=== PATIENT | female | born 1975 | race Caucasian/White ===

== ENCOUNTER 2017-01-05 19:34 | Inpatient (IN) | payer MEDICARE ==
[~2017-01-05] VITALS: Ht 170.2 cm; Wt 87.6 kg
[~2017-01-05 19:34] MED LIST: ACYC-114 PO; ALPR2TAB5 PO; AMOX500T PO; ARIP5TAB13 PO; BUSP10TA; D-ME118S2 PO; DEXL60CA2 PO; DICY20TA3 PO; ESCI20TA10 PO; HYDR25TA6 PO; HYDR50CA PO; OMEP-110 PO; OSEL75CA; PHEN37.53 PO; SUCR1TAB PO; SUMA100T3 PO; TOPI25TA32 PO; ZOLP10TA5 PO
[2017-01-05] MEDS ORDERED: SODIUM CHLORIDE FLUSH 10ML SYR IVF ONE ×2 (20:00→20:30)
[2017-01-05] MEDS ORDERED: SODIUM CHLORIDE 0.9% 1,000ML IVBOLUS ONE ×2 (20:00→20:30)
[2017-01-05 20:05] LABS: HEMATOCRIT 46.1 % (34.6-47.8); HEMOGLOBIN 14.6 g/dL (11.7-16.4); WHITE BLOOD COUNT 10.2 x10^3/uL (3.4-10)
[2017-01-05 20:15] LABS: ASPARTATE AMINO TRANSFERASE 19 U/L (15-37); BLOOD UREA NITROGEN 5 mg/dL (7-18)
[2017-01-05] MEDS ORDERED: ONDANSETRON 2MG/ML, 2ML ONE (20:23)
[2017-01-05] MEDS ORDERED: FAMOTIDINE 20 MG/2 ML ONE (20:23)
[2017-01-05] MEDS ORDERED: MAALOX/HYOSCYAMINE/LIDOCAINE 45 ML BTL ONE (20:23)
[2017-01-05] MEDS ORDERED: LORazepam 2 MG/ML, 1ML ONE (20:23)
[2017-01-05] MEDS ORDERED: ONDANSETRON 2MG/ML, 2ML IVPush ONE (20:30)
[2017-01-05] MEDS ORDERED: FAMOTIDINE 20 MG/2 ML IVP ONE (20:30)
[2017-01-05] MEDS ORDERED: LORazepam 2 MG/ML, 1ML IVPush ONE (20:30)
[2017-01-05] MEDS ORDERED: MAALOX/HYOSCYAMINE/LIDOCAINE 45 ML BTL PO ONE (20:30)
[2017-01-05 20:39] LABS: IS PT STATUS REG ER OR PRE ER? YES
[2017-01-05 21:55] LABS: DAU SCREEN DISCLAIMER
[2017-01-05] MEDS ORDERED: BISACODYL 10 MG SUPP PR PRN (22:30)
[2017-01-05] MEDS ORDERED: ACYCLOVIR 400 MG TABLET PO PRN (22:30)
[2017-01-05] MEDS ORDERED: PROMETHAZINE 25 MG/ML, 1ML IM PRN (22:30)
[2017-01-05] MEDS ORDERED: ACETAMINOPHEN 325 MG TABLET PO PRN (22:30)
[2017-01-05] MEDS: HYDROXYZINE PAMOATE HOMEMEDPO SCH (22:30)
[2017-01-05 23:00] VITALS: BP 136/91
[2017-01-05 23:00] LABS: FERRITIN 47.5 ng/mL (8-252)
[2017-01-05] MEDS: morphine SULFATE 10 MG/ML, 1ML IVPush PRN ×2 (23:09→23:39)
[2017-01-05] MEDS: SODIUM CHLORIDE 0.9% 1,000 ML IV SCH (23:10)
[2017-01-05] MEDS: ZOLPIDEM 10MG TABLET PO SCH (23:40)
[2017-01-05] MEDS: FAMOTIDINE 20 MG/2 ML IVPush SCH (23:40)
[2017-01-05] MEDS: DICYCLOMINE 20 MG TABLET PO SCH (23:40)
[2017-01-05] MEDS: HEPARIN 5,000 UNITS/ML, 1ML SQ SCH (23:41)
[2017-01-05] MEDS: TOPIRAMATE 25 MG TABLET PO SCH (23:41)
[2017-01-06] MEDS: morphine SULFATE 10 MG/ML, 1ML IVPush PRN ×5 (00:32→12:25)
[2017-01-06] MEDS: ALPRazolam 1MG TABLET PO PRN ×2 (00:33→06:29)
[2017-01-06] MEDS ORDERED: DIPHENHYDRAMINE 25 MG CAPSULE PO ONE (02:30)
[2017-01-06] MEDS: ONDANSETRON 2MG/ML, 2ML IVPush PRN ×2 (02:35→09:02)
[2017-01-06] MEDS: CALCIUM CARBONATE 500 MG TAB.CHEW PO PRN ×2 (02:36→14:36)
[2017-01-06 03:18] VITALS: BP 125/76
[2017-01-06 05:09] LABS: HEMATOCRIT 41.8 % (34.6-47.8); HEMOGLOBIN 13.5 g/dL (11.7-16.4)
[2017-01-06 05:15] LABS: BLOOD UREA NITROGEN 4 mg/dL (7-18)
[2017-01-06 05:18] LABS: ASPARTATE AMINO TRANSFERASE 15 U/L (15-37)
[2017-01-06] MEDS: DICYCLOMINE 20 MG TABLET PO SCH ×4 (06:28→20:08)
[2017-01-06 06:42] VITALS: BP 111/69
[2017-01-06 06:47] VITALS: BP 103/54
[2017-01-06] MEDS: ARIPIPRAZOLE 5 MG TABLET PO SCH ×2 (08:46→08:49)
[2017-01-06] MEDS: FAMOTIDINE 20 MG/2 ML IVPush SCH (08:46)
[2017-01-06] MEDS: HEPARIN 5,000 UNITS/ML, 1ML SQ SCH ×2 (08:46→17:14)
[2017-01-06] MEDS: ESCITALOPRAM OXALATE HOMEMEDPO SCH (09:00)
[2017-01-06] MEDS: SODIUM CHLORIDE 0.9% 1,000 ML IV SCH ×2 (09:06→20:03)
[2017-01-06] MEDS: NICOTINE 21 MG/24 HR PATCH.TD24 TD SCH (10:34)
[2017-01-06] MEDS: CITALOPRAM 20 MG TABLET PO SCH (13:47)
[2017-01-06 15:00] VITALS: BP 94/59
[2017-01-06] MEDS ORDERED: OXYcodone IR 5MG TABLET PO PRN (16:00)
[2017-01-06] MEDS: SUCRALFATE 1 GM TABLET PO SCH ×3 (16:00→20:09)
[2017-01-06 17:19] LABS: FERRITIN 48.7 ng/mL (8-252)
[2017-01-06 19:52] VITALS: BP 111/66
[2017-01-06] MEDS: OMEPRAZOLE 20 MG CAPSULE.DR PO SCH (20:08)
[2017-01-06] MEDS: TOPIRAMATE 25 MG TABLET PO SCH (20:08)
[2017-01-06] MEDS: ZOLPIDEM 10MG TABLET PO SCH ×2 (20:08→21:20)
[2017-01-06] MEDS: HYDROXYZINE PAMOATE HOMEMEDPO SCH (20:10)
[2017-01-07 04:23] VITALS: BP 90/54
[2017-01-07 06:21] LABS: BLOOD UREA NITROGEN 3 mg/dL (7-18)
[2017-01-07] MEDS: SUCRALFATE 1 GM TABLET PO SCH ×2 (06:39→11:00)
[2017-01-07] MEDS: DICYCLOMINE 20 MG TABLET PO SCH ×2 (06:39→10:58)
[2017-01-07] MEDS: OMEPRAZOLE 20 MG CAPSULE.DR PO SCH (07:54)
[2017-01-07] MEDS: SODIUM CHLORIDE 0.9% 1,000 ML IV SCH (07:54)
[2017-01-07] MEDS: CITALOPRAM 20 MG TABLET PO SCH (07:54)
[2017-01-07] MEDS: HEPARIN 5,000 UNITS/ML, 1ML SQ SCH ×2 (07:54)
[2017-01-07] MEDS: ARIPIPRAZOLE 5 MG TABLET PO SCH (07:59)
[2017-01-07 08:34] VITALS: BP 104/70
[2017-01-07] MEDS: ESCITALOPRAM OXALATE HOMEMEDPO SCH (09:00)
[2017-01-07] MEDS: NICOTINE 21 MG/24 HR PATCH.TD24 TD SCH (09:00)
[2017-01-07] MEDS ORDERED: CITALOPRAM 20 MG TABLET PO SCH (09:00)
[2017-01-07] MEDS: ALPRazolam 1MG TABLET PO PRN (12:32)
[2017-01-07 12:38] VITALS: BP 112/75
[2017-01-07] MEDS ORDERED: SUCR1TAB33 PO ×3 (12:50→13:31)
[2017-01-07 14:22] VITALS: BP 109/69
== END 2017-01-07 14:30 | disposition home or self-care (01) | DRG 392 ==
LOC: ED 21:11 → EDIP 21:52 → 4NOR 22:42 → DCLOUNGE 01-07 14:20
PROVIDERS: ADMIT Hospitalist; ATTEND Family Medicine
DX: K29.70 Gastritis, unspecified, without bleeding (principal); E87.1 Hypo-osmolality and hyponatremia; K76.0 Fatty (change of) liver, not elsewhere classified; E87.8 Other disorders of electrolyte and fluid balance, not elsewhere classified; E86.0 Dehydration; F17.210 Nicotine dependence, cigarettes, uncomplicated; F32.9 Major depressive disorder, single episode, unspecified; F41.1 Generalized anxiety disorder; F43.10 Post-traumatic stress disorder, unspecified; G43.909 Migraine, unspecified, not intractable, without status migrainosus; Z90.49 Acquired absence of other specified parts of digestive tract; Z90.710 Acquired absence of both cervix and uterus; Z91.041 Radiographic dye allergy status
CPT/HCPCS: 36415; 74000; 76700; 80048; 80053; 80307; 81003; 82728; 83540; 83550; 83690; 83735; 84295; 84484; 85025; 86677; 93005; 96361; 96374; 96375; J1644; J2405; G0479; J2060; J2270; J7030; Q0163; S0028

== ENCOUNTER 2019-08-02 17:00 | Emergency (ER) | payer MEDICARE, MEDICAID ==
[~2019-08-02] VITALS: Ht 170.2 cm; Wt 63.1 kg
[~2019-08-02 17:00] MED LIST changes: -D-ME118S2 PO; -OSEL75CA; +OSEL75CA26; +PROM118S6 PO; +SUCR1TAB33 PO
--- NOTE | 2019-08-02 17:39 | NUR ---
N/V X TWO DAYS. +PALPITATIONS. DENIES ABD PAIN. ON CONT CARDAIC MONITOR SPO2, BPQ 30 MIN.
[2019-08-02 17:40] LABS: BASOPHILS # (AUTO) 0.04 x10^3/uL (0-0.1); BASOPHILS % (AUTO) 0 % (0-1); EOSINOPHILS # (AUTO) 0.04 x10^3/uL (0-0.4); EOSINOPHILS % (AUTO) 0 % (1-7); LYMPHOCYTES # (AUTO) 2.27 x10^3/uL (1-3.4); LYMPHOCYTES % (AUTO) 23 % (22-44); MD NO; MEAN CORPUSCULAR HEMOGLOBIN 27.4 pg (27.0-34.8); MEAN CORPUSCULAR HGB CONC 32.4 g/dL (32.4-35.8); MEAN CORPUSCULAR VOLUME 84.3 fL (80-100); MEAN PLATELET VOLUME 8.1 fL (7.4-10.4); MONOCYTES # (AUTO) 0.51 x10^3/uL (0.2-0.8); MONOCYTES % (AUTO) 5 % (2-9); NEUTROPHILS # (AUTO) 7.21 x10^3/uL (1.8-6.8); NEUTROPHILS % (AUTO) 72 % (42-75); PLATELET COUNT 320 x10^3/uL (130-400); RED BLOOD COUNT 5.35 x10^6/uL (3.82-5.3); RED CELL DISTRIBUTION WIDTH 14.9 % (9.6-15.2)
[2019-08-02 17:51] LABS: ALANINE AMINOTRANSFERASE 24 U/L (12-78); ALBUMIN 4.6 g/dL (3.4-5.0); ANION GAP 9 mmol/L (5-15); CALCIUM 9.7 mg/dL (8.5-10.1); CHLORIDE 106 mmol/L (98-107); CREATININE 1.26 mg/dL (0.55-1.02)
[2019-08-02] MEDS ORDERED: ZOLP-413 PO (17:51)
[2019-08-02] MEDS ORDERED: SUMA100T4 PO (17:51)
[2019-08-02] MEDS ORDERED: HYDR50TA99 PO (17:51)
[2019-08-02] MEDS ORDERED: METO10TA2 PO (17:51)
[2019-08-02] MEDS ORDERED: TIZA4CAP PO (17:51)
[2019-08-02] MEDS ORDERED: OMEP-110 PO (17:51)
[2019-08-02] MEDS ORDERED: VALA10004 PO (17:51)
[2019-08-02] MEDS ORDERED: VENL37.52 PO (17:51)
[2019-08-02] MEDS ORDERED: FLUT9.9S16 INH (17:51)
[2019-08-02] MEDS ORDERED: ZIPR80CA2 PO (17:51)
[2019-08-02 17:56] LABS: ALKALINE PHOSPHATASE 95 U/L (45-117); BILIRUBIN,TOTAL 0.5 mg/dL (0.2-1.0); TOTAL PROTEIN 8.4 g/dL (6.4-8.2); TROPONIN I < 0.015 ng/mL (0.000-0.045)
[2019-08-02] MEDS ORDERED: SODIUM CHLORIDE 0.9% 1,000ML IVBOLUS ONE (18:00)
[2019-08-02] MEDS ORDERED: SODIUM CHLORIDE FLUSH 10ML SYR IVF ONE (18:00)
[2019-08-02] MEDS ORDERED: ONDANSETRON 2MG/ML, 2ML IVPush ONE (18:00)
[2019-08-02] MEDS ORDERED: LORazepam 2 MG/ML, 1ML IVPush ONE (18:00)
[2019-08-02] MEDS ORDERED: ONDANSETRON 2MG/ML, 2ML ONE (18:15)
[2019-08-02] MEDS ORDERED: LORazepam 2 MG/ML, 1ML ONE (18:16)
[2019-08-02 18:31] LABS: FREE T4 (FREE THYROXINE) 1.19 ng/dL (0.76-1.46)
--- NOTE | 2019-08-02 18:45 | NUR ---
PT FEELING MUCH BETTER AFTER MEDICATIONS, CP 5/10 FEELING, NO NAUSEA.
--- NOTE | 2019-08-02 19:20 | NUR ---
ASSUMED CARE OF PT AT THIS TIME.
[2019-08-02 19:21] VITALS: BP 129/85
[2019-08-02] MEDS ORDERED: ONDANSETRON ODT 4 MG ONE (19:55)
[2019-08-02] MEDS ORDERED: ONDANSETRON ODT 4 MG PO ONE (20:00)
== END 2019-08-02 20:00 | disposition home or self-care (01) ==
LOC: ED 18:52
DX: R11.2 Nausea with vomiting, unspecified (principal); R00.2 Palpitations; F41.1 Generalized anxiety disorder; I49.3 Ventricular premature depolarization; R94.31 Abnormal electrocardiogram [ECG] [EKG]; K21.9 Gastro-esophageal reflux disease without esophagitis; E87.1 Hypo-osmolality and hyponatremia; Z90.710 Acquired absence of both cervix and uterus; Z79.899 Other long term (current) drug therapy; Z91.09 Other allergy status, other than to drugs and biological substances
CPT/HCPCS: 36415; 71045; 80053; 83735; 84439; 84443; 84484; 85025; 85379; 93005; 96361; 96374; 96375; 99285; J2060; J2405; J7030; Q0162

== ENCOUNTER 2019-10-20 11:46 | Emergency (ER) | payer MEDICARE, MEDICAID ==
[~2019-10-20] VITALS: Ht 170.2 cm; Wt 63.0 kg
[~2019-10-20 11:46] MED LIST changes: -ALPR0.254 PO; -FENTANYL PF 100 MCG/2ML ONE; -MONT10TA11 PO; -OXYB-39 PO; -PANT40TA5 PO; -PRAZ5CAP2 PO
[2019-10-20] MEDS ORDERED: SODIUM CHLORIDE FLUSH 10ML SYR IVF ONE (12:00)
[2019-10-20] MEDS ORDERED: ONDANSETRON 2MG/ML, 2ML IVPush ONE (12:00)
[2019-10-20] MEDS ORDERED: SODIUM CHLORIDE 0.9% 1,000ML IVBOLUS ONE (12:00)
[2019-10-20] MEDS ORDERED: MORPHINE SULFATE 4 MG/ML, 1ML IVPush PRN (12:00)
[2019-10-20] MEDS ORDERED: MAALOX/HYOSCYAMINE/LIDOCAINE 45 ML BTL ONE (12:25)
[2019-10-20] MEDS ORDERED: ONDANSETRON 2MG/ML, 2ML ONE (12:25)
[2019-10-20] MEDS ORDERED: MAALOX/HYOSCYAMINE/LIDOCAINE 45 ML BTL PO ONE (12:30)
[2019-10-20 12:32] LABS: BASOPHILS # (AUTO) 0.03 x10^3/uL (0-0.1); BASOPHILS % (AUTO) 0 % (0-1); EOSINOPHILS # (AUTO) 0.01 x10^3/uL (0-0.4); EOSINOPHILS % (AUTO) 0 % (1-7); LYMPHOCYTES # (AUTO) 2.25 x10^3/uL (1-3.4); LYMPHOCYTES % (AUTO) 20 % (22-44); MD NO; MEAN CORPUSCULAR HEMOGLOBIN 26.4 pg (27.0-34.8); MEAN CORPUSCULAR HGB CONC 31.6 g/dL (32.4-35.8); MEAN CORPUSCULAR VOLUME 83.6 fL (80-100); MEAN PLATELET VOLUME 7.1 fL (7.4-10.4); MONOCYTES % (AUTO) 4 % (2-9); NEUTROPHILS # (AUTO) 8.76 x10^3/uL (1.8-6.8); NEUTROPHILS % (AUTO) 77 % (42-75); PLATELET COUNT 348 x10^3/uL (130-400); RED BLOOD COUNT 5.26 x10^6/uL (3.82-5.3); RED CELL DISTRIBUTION WIDTH 14.6 % (9.6-15.2)
[2019-10-20 12:42] LABS: ALANINE AMINOTRANSFERASE 21 U/L (12-78); ALBUMIN 4.1 g/dL (3.4-5.0); ANION GAP 7 mmol/L (5-15); CALCIUM 10.1 mg/dL (8.5-10.1); CHLORIDE 107 mmol/L (98-107); CREATININE 1.03 mg/dL (0.55-1.02)
[2019-10-20 12:45] LABS: ALKALINE PHOSPHATASE 71 U/L (45-117); BILIRUBIN,TOTAL 0.5 mg/dL (0.2-1.0); TOTAL PROTEIN 7.3 g/dL (6.4-8.2)
[2019-10-20] MEDS ORDERED: LORazepam 2 MG/ML, 1ML ONE (12:50)
[2019-10-20] MEDS ORDERED: LORazepam 2 MG/ML, 1ML IVPush ONE (13:00)
[2019-10-20] MEDS ORDERED: HYDR50CA PO (13:03)
[2019-10-20] MEDS ORDERED: PRAZ5CAP2 PO (13:03)
[2019-10-20] MEDS ORDERED: MONT10TA11 PO (13:03)
[2019-10-20] MEDS ORDERED: PANT40TA5 PO (13:03)
[2019-10-20] MEDS ORDERED: ALPR0.254 PO (13:03)
[2019-10-20] MEDS ORDERED: OXYB-39 PO (13:03)
[2019-10-20 13:18] VITALS: BP 137/80
--- NOTE | 2019-10-20 14:15 | NUR ---
Patient given discharge instructions and they have confirmed that they understand the instructions. Patient ambulatory with steady gait.
== END 2019-10-20 14:17 | disposition home or self-care (01) ==
LOC: ED 12:17
DX: K29.50 Unspecified chronic gastritis without bleeding (principal); F41.1 Generalized anxiety disorder; R10.13 Epigastric pain; E21.5 Disorder of parathyroid gland, unspecified; R11.2 Nausea with vomiting, unspecified; I49.1 Atrial premature depolarization
CPT/HCPCS: 36415; 76700; 80053; 83690; 85025; 93005; 96361; 96374; 96375; 99285; J2060; J2405; J7030

== ENCOUNTER → 2019-10-20 | Outpatient (CLI) | payer MEDICARE, MEDICAID ==
[~2019-10-20] MED LIST changes: +ALPR0.254 PO; +FENTANYL PF 100 MCG/2ML ONE; +FLUT9.9S16 INH; +HYDR50TA99 PO; +METO10TA2 PO; +MONT10TA11 PO; +OXYB-39 PO; +PANT40TA5 PO; +PRAZ5CAP2 PO; +SUMA100T4 PO; +TIZA4CAP PO; +VALA10004 PO; +VENL37.52 PO; +ZIPR80CA2 PO; +ZOLP-413 PO
[2019-10-20 12:22] LABS: MICROSCOPIC NOT IND
== END | disposition home or self-care (01) ==
LOC: STAR 11:06
PROVIDERS: ATTEND Surgery
DX: Z01.812 Encounter for preprocedural laboratory examination (principal); Z20.828 Contact with and (suspected) exposure to other viral communicable diseases
CPT/HCPCS: 36415; 81003; 87635

== ENCOUNTER 2019-10-24 06:29 | Inpatient (IN) | payer MEDICARE, MEDICAID ==
[~2019-10-24] VITALS: Ht 170.2 cm; Wt 68.3 kg
[~2019-10-24 06:29] MED LIST changes: +ALPR0.254 PO; +MONT10TA11 PO; +OXYB-39 PO; +PANT40TA6 PO; +PRAZ5CAP2 PO
[2019-10-24] MEDS ORDERED: LACTATED RINGERS 1,000 ML IV SCH (07:02)
[2019-10-24] MEDS ORDERED: LIDOCAINE-MPF 1%, 2ML ONE (07:05)
[2019-10-24] MEDS ORDERED: CHLORHEXIDINE 15 ML UDC ONE (07:06)
[2019-10-24] MEDS ORDERED: CHLORHEXIDINE 15 ML UDC MM ONE (07:30)
[2019-10-24] MEDS ORDERED: LIDOCAINE-MPF 1%, 2ML INFIL ONE (07:30)
[2019-10-24] MEDS ORDERED: FENTANYL PF 250 MCG/5ML ONE (07:46)
[2019-10-24] MEDS ORDERED: MIDAZOLAM 1 MG/ML, 2ML ONE (07:46)
[2019-10-24] MEDS ORDERED: SCOPOLAMINE 1MG PATCH TD ONE ×2 (08:12→08:16)
[2019-10-24] MEDS ORDERED: MEPERIDINE/PF 25MG/0.5ML IVPush PRN (08:30)
[2019-10-24] MEDS ORDERED: HYDROcodone/APAP 7.5-325MG/15ML UDC PO PRN (08:30)
[2019-10-24] MEDS ORDERED: PROMETHAZINE 25 MG/ML, 1ML IVPush PRN (08:30)
[2019-10-24] MEDS ORDERED: DIPHENHYDRAMINE 50 MG/ML, 1ML IVPush PRN (08:30)
[2019-10-24] MEDS ORDERED: HALOPERIDOL 5 MG/ML IV PRN (08:30)
[2019-10-24] MEDS ORDERED: HYDROmorphone 1 MG/ML, 1ML INJ IVPush PRN (08:30)
[2019-10-24] MEDS ORDERED: DEXAMETHASONE 4 MG/ML, 1ML ONE (09:02)
[2019-10-24] MEDS ORDERED: CEFAZOLIN 1,000 MG ONE (09:02)
[2019-10-24] MEDS ORDERED: SUCCINYLCHOLINE 20 MG/ML, 10ML ONE (09:02)
[2019-10-24] MEDS ORDERED: NEOSTIGMINE 1 MG/ML, 10ML ONE (09:02)
[2019-10-24] MEDS ORDERED: ONDANSETRON 2MG/ML, 2ML ONE (09:02)
[2019-10-24] MEDS ORDERED: PROPOFOL 10 MG/ML, 20ML ONE (09:02)
[2019-10-24] MEDS ORDERED: ROCURONIUM 10MG/ML,5ML ONE (09:02)
[2019-10-24] MEDS ORDERED: GLYCOPYRROLATE 0.2MG/1ML, 5ML ONE (09:02)
[2019-10-24] MEDS ORDERED: MEPERIDINE/PF 25MG/ML,1ML ONE (10:45)
[2019-10-24] MEDS ORDERED: FENTANYL PF 100 MCG/2ML ONE ×2 (10:57→11:17)
[2019-10-24] MEDS: FENTANYL PF 100 MCG/2ML IV PRN ×4 (10:58→11:32)
[2019-10-24 11:10] LABS: 10MIN %DROP IOPTH 56 %
[2019-10-24 11:11] LABS: 5MIN %DROP IOPTH 51 %
[2019-10-24 11:12] LABS: IOPTH BASELINE 69 pg/mL
[2019-10-24] MEDS ORDERED: HYDROcodone/APAP 7.5-325MG/15ML UDC ONE (11:18)
[2019-10-24] MEDS ORDERED: DIPHENHYDRAMINE 50 MG/ML, 1ML ONE (11:38)
[2019-10-24] MEDS ORDERED: LORazepam 2 MG/ML, 1ML ONE (12:28)
[2019-10-24 12:35] VITALS: BP 140/92
[2019-10-24 12:44] VITALS: BP 145/82
[2019-10-24] MEDS ORDERED: SUMATRIPTAN 100 MG TABLET PO PRN (13:00)
[2019-10-24] MEDS ORDERED: DIPHENHYDRAMINE 25 MG CAPSULE PO PRN (13:00)
[2019-10-24] MEDS ORDERED: LORazepam 2 MG/ML, 1ML IV PRN (13:00)
[2019-10-24] MEDS ORDERED: ONDANSETRON 2MG/ML, 2ML IV PRN (13:00)
[2019-10-24] MEDS ORDERED: LORazepam 1MG TABLET PO PRN (13:00)
[2019-10-24] MEDS ORDERED: DIPHENHYDRAMINE 50 MG/ML, 1ML IV PRN ×2 (13:00)
[2019-10-24] MEDS: morphine SULFATE 10 MG/ML, 1ML IV PRN ×3 (13:10→18:35)
[2019-10-24] MEDS: hydrOXyzine 50MG TABLET PO SCH ×2 (15:57→20:55)
[2019-10-24] MEDS: OMEPRAZOLE 20 MG CAPSULE.DR PO SCH (15:57)
[2019-10-24] MEDS ORDERED: METOCLOPRAMIDE 10MG TABLET PO SCH (16:00)
[2019-10-24 19:01] LABS: ALBUMIN 3.9 g/dL (3.4-5.0); CALCIUM 9.2 mg/dL (8.5-10.1)
[2019-10-24] MEDS: LACTATED RINGERS 1,000 ML IV SCH (19:30)
[2019-10-24 19:42] VITALS: BP 143/88
[2019-10-24] MEDS: HYDROcodone/APAP 5/325 TABLET PO PRN ×2 (20:55→22:14)
[2019-10-24] MEDS: OXYBUTYNIN CHLORIDE 5 MG TABLET PO SCH (20:56)
[2019-10-24] MEDS ORDERED: MONTELUKAST 10 MG TABLET PO SCH (21:00)
[2019-10-24] MEDS ORDERED: ZOLPIDEM 10MG TABLET PO SCH (21:00)
[2019-10-24] MEDS ORDERED: PRAZOSIN 5 MG CAPSULE PO SCH (21:00)
[2019-10-24] MEDS ORDERED: ZIPRASIDONE 40MG CAPSULE PO SCH (21:00)
[2019-10-24 23:20] VITALS: BP 129/83
[2019-10-25 01:19] LABS: ALBUMIN 3.8 g/dL (3.4-5.0); CALCIUM 8.8 mg/dL (8.5-10.1)
[2019-10-25] MEDS: HYDROcodone/APAP 5/325 TABLET PO PRN ×2 (02:24→06:15)
[2019-10-25 03:06] VITALS: BP 128/81
[2019-10-25] MEDS: OMEPRAZOLE 20 MG CAPSULE.DR PO SCH (06:15)
[2019-10-25 06:48] LABS: ALBUMIN 3.9 g/dL (3.4-5.0); CALCIUM 9.3 mg/dL (8.5-10.1)
[2019-10-25 07:14] VITALS: BP 102/66
[2019-10-25] MEDS: OXYBUTYNIN CHLORIDE 5 MG TABLET PO SCH (08:14)
[2019-10-25] MEDS: LACTATED RINGERS 1,000 ML IV SCH (08:14)
[2019-10-25] MEDS: hydrOXyzine 50MG TABLET PO SCH (08:14)
[2019-10-25] MEDS ORDERED: HYDR-3240 PO (08:40)
[2019-10-25] MEDS ORDERED: [UNRECOGNIZED DRUG - CODE] PO (08:42)
[2019-10-25] MEDS ORDERED: VALACYCLOVIR 500MG TABLET PO SCH (09:00)
[2019-10-25] MEDS ORDERED: VENLAFAXINE XR 37.5MG CAP.ER.24H PO SCH (09:00)
[2019-10-25] MEDS ORDERED: FLUTICASONE NASAL SPRAY 16GM NAS SCH (09:00)
== END 2019-10-25 09:49 | disposition home or self-care (01) | DRG 627 ==
LOC: OUT 06:29 → 4NE 12:10 → OUT 12:24 → DCLOUNGE 10-25 09:40
PROVIDERS: ADMIT Surgery; ATTEND Surgery
PROC: 0GJR0ZZ Inspection of Parathyroid Gland, Open Approach (ICD-10-PCS; 2019-10-24)
PROC: 0GTP0ZZ Resection of Left Inferior Parathyroid Gland, Open Approach (ICD-10-PCS; 2019-10-24)
PROC: 0GTL0ZZ Resection of Right Superior Parathyroid Gland, Open Approach (ICD-10-PCS; 2019-10-24)
PROC: 0GTM0ZZ Resection of Left Superior Parathyroid Gland, Open Approach (ICD-10-PCS; 2019-10-24)
PROC: 0GTN0ZZ Resection of Right Inferior Parathyroid Gland, Open Approach (ICD-10-PCS; 2019-10-24)
PROC: 0GTR0ZZ Resection of Parathyroid Gland, Open Approach (ICD-10-PCS; principal; 2019-10-24 08:30)
DX: E21.0 Primary hyperparathyroidism (principal); F32.9 Major depressive disorder, single episode, unspecified; K21.9 Gastro-esophageal reflux disease without esophagitis; E03.9 Hypothyroidism, unspecified; E16.2 Hypoglycemia, unspecified
CPT/HCPCS: 36415; 82040; 82310; 83970; 88305; 88331; G0378; J0690; J1100; J2175; J2250; J2405; J2704; J2710; J3010; C1760; J0330; J1200; J2060; J2270; J7120